=== PATIENT | male | born 1960 | race Caucasian/White ===

== ENCOUNTER 2016-09-27 05:39 | Outpatient (CLI) | payer BC ==
[~2016-09-27] VITALS: Ht 172.7 cm; Wt 72.6 kg
[2016-09-27] MEDS ORDERED: ASPI-586 PO (10:03)
== END 2016-09-27 10:07 ==
LOC: PREOP 05:39
PROVIDERS: ATTEND Surgery Pediatric Surgery
DX: Z01.818 Encounter for other preprocedural examination (principal); Z12.11 Encounter for screening for malignant neoplasm of colon

== ENCOUNTER 2016-09-29 09:37 | Day surgery (SDC) | payer BC ==
[~2016-09-29] VITALS: Ht 172.7 cm; Wt 72.6 kg
[~2016-09-29 09:37] MED LIST: ASPI-586 PO
--- OUTSIDE RECORDS SUMMARY | 2016-09-29 09:39 | XMS REPORT | Continuity of Care Document ---
Author Author [facility] Organization [facility] Address Unknown Phone Unavailable Care Team Providers Care Clinical Physician Assistant Name Role Phone CHETNA HOLLIS MD PCP Insurance Providers Payer Name Policy Number Subscriber Name Relationship [facility] [id number] Florentino Hernandez 19 Self / Same As Patient Advance Directives Directive Response Recorded Date/Time Advance Directives No 09/27/16 10:01am Health Care Power of Medical Asst No 09/27/16 10:01am Resuscitation Status Full Code 09/27/16 10:01am Problems No problem information available. Medications Current Home Medications Medication Dose Units Route Directions Days/Qty Instructions Start Date Aspirin 81 Mg 81 Mg Oral Daily 09/27/16 Social History Social History Problem Response Recorded Date/Time Alcohol Use Regular Use 09/27/2016 10:01am Recreational Drug Use No 09/27/2016 10:01am Recent Foreign Travel No 09/27/2016 10:00am Recent Infectious Disease Exposure No 09/27/2016 10:00am Sexually Transmitted Disease No 09/27/2016 10:01am HIV/AIDS No 09/27/2016 10:01am Smoking Status Never a Smoker 09/27/2016 10:01am Recent Hopitalizations No 09/27/2016 10:01am Sexually Transmitted Disease No 09/27/2016 10:01am Query Response Start Date Stop Date Smoking Status Never a Smoker Hospital Discharge Instructions No hospital discharge instructions. Plan of Care Discharge Date 09/27/16 10:07am Prescriptions See Medication Section Functional Status No functional status results. Allergies, Adverse Reactions, Alerts No known allergies. Immunizations No immunization records. Vital Signs Acute Vital Signs Vital Response Date/Time Height (Feet) 5 feet 09/27/2016 9:59am Height (Inches) 8.00 inches 09/27/2016 9:59am Height (Calculated Centimeters) 172.395154 cm 09/27/2016 9:59am Weight (Pounds) 160 pounds 09/27/2016 9:59am Weight (Ounces) 0.0 oz 09/27/2016 9:59am Weight (Calculated Grams) 44878.78 gm 09/27/2016 9:59am Weight (Calculated Kilograms) 72.810864 kilograms 09/27/2016 9:59am Calculated BMI 24.3 09/27/2016 9:59am Results No known relevant diagnostic tests, laboratory data and/or discharge summary. Procedures No known history of procedures. Encounters Encounter Location Arrival/Admit Date Discharge/Depart Date Attending Provider Departed Clinic [facility] 09/27/16 5:39am 09/27/16 10: 07am ATILIO MEDRANO MD
--- OUTSIDE RECORDS SUMMARY | 2016-09-29 09:40 | XMS REPORT | Continuity of Care Document ---
Author Author [facility] Organization [facility] Address Unknown Phone Unavailable Care Team Providers Care Ski Topper Name Role Phone CHETNA HOLLIS MD PCP Insurance Providers Payer Name Policy Number Subscriber Name Relationship [facility] [id number] Florentino Hernandez 19 Self / Same As Patient Advance Directives Directive Response Recorded Date/Time Advance Directives No 09/27/16 10:01am Health Care Power of Animal Technician No 09/27/16 10:01am Resuscitation Status Full Code [...] 8.00 inches 09/27/2016 9:59am Height (Calculated Centimeters) 172.472197 cm 09/27/2016 9:59am Weight (Pounds) 160 pounds 09/27/2016 9:59am Weight (Ounces) 0.0 oz 09/27/2016 9:59am Weight (Calculated Grams) 74543.78 gm 09/27/2016 9:59am Weight (Calculated Kilograms) 72.286806 kilograms 09/27/2016 9:59am Calculated BMI 24.3 09/27/2016 9:59am Results No known relevant diagnostic tests, laboratory data and/or discharge summary. Procedures No known history of procedures. Encounters Encounter Location Arrival/Admit Date Discharge/Depart Date Attending Provider Departed Clinic [facility] 09/27/16 5:39am 09/27/16 10: 07am ATILIO MEDRANO MD
[2016-09-29] MEDS ORDERED: FLUMAZENIL (ROMAZICON) 0.1 MG/ML 5 ML VIAL INJ PRN (09:45)
[2016-09-29] MEDS ORDERED: LIDOCAINE JELLY 2% (XYLOCAINE) 5 ML TUBE MM PRN (09:45)
[2016-09-29] MEDS ORDERED: NALOXONE 0.4 MG/ML 1 ML (NARCAN) VIAL IVP PRN (09:45)
[2016-09-29 09:58] VITALS: BP 145/91
[2016-09-29] MEDS ORDERED: NS IV 500 ML 500 ML IV PRN (10:00)
[2016-09-29] MEDS ORDERED: LIDOCAINE JELLY 2% (XYLOCAINE) 5 ML TUBE ONE (10:09)
[2016-09-29] MEDS ORDERED: fentaNYL INJECTION 100 MCG/2 ML AMP ONE ×2 (10:09)
[2016-09-29] MEDS ORDERED: MIDAZOLAM 2 MG/2 ML (VERSED) VIAL ONE ×4 (10:09→10:10)
--- NOTE | 2016-09-29 10:13 | Conscious Sedation/ASA ---
Conscious Sedation Pre-Proced Time Reviewed: 10:00 ASA Class: 2 Airway Mallampati Classification: ([place] appropriate class) I. II. III, IV Lungs Heart ASA score ASA 1: a normal healthy patient ASA 2: a patient with a mild systemic disease (mid diabetes, controlled hypertension, obesity ASA 3: a patient with a severe systemic disease that limits activity (angina , COPD, prior Myocardial infarction) ASA 4: a patient with an incapacitating disease that is a constant threat to life (CHF, renal failure) ASA 5: a moribund patient not expected to survive 24 hrs. (ruptured aneurysm) ASA 6: a declared brain patient whose organs are being harvested. For emergent operations, add the letter E after the classification Grade 2 Sedation Plan: Analgesia, Amnesia, Plan communicated to team members, Discussed options with patient/fam, Discussed risks with patient/fam Note The patient is an appropriate candidate to undergo the planned procedure, sedation, and anesthesia. The patient immediately re-assessed prior to indication. ATILIO MEDRANO MD Sep 29, 2016 10:13 am
--- NOTE | 2016-09-29 10:13 | Progress Note-Pre Operative ---
Pre-Operative Progress Note H&P Reviewed The H&P was reviewed, patient examined and no changes noted. Date H&P Reviewed: Sep 29, 2016 Time H&P Reviewed: 10:00 Pre-Operative Diagnosis: screening colonoscopy ATILIO MEDRANO MD Sep 29, 2016 10:13 am
[2016-09-29] MEDS ORDERED: ACETAMINOPHEN 325 MG TABLET/CAPLET (TYLENOL) PO PRN (10:15)
[2016-09-29] MEDS ORDERED: morphine INJ 10 MG/ML 1ML (SYR OR VIAL) IV PRN (10:15)
[2016-09-29] MEDS ORDERED: HYDROcodone/APAP 5 MG/325 MG (LORTAB) TAB PO PRN (10:15)
[2016-09-29] MEDS ORDERED: ONDANSETRON 4 MG/2 ML (SDV) Z0FRAN IV PRN (10:15)
[2016-09-29] MEDS: fentaNYL INJECTION 100 MCG/2 ML AMP IVP PRN ×4 (10:27→10:44)
[2016-09-29] MEDS: MIDAZOLAM 2 MG/2 ML (VERSED) VIAL IVP PRN ×4 (10:28→10:40)
--- NOTE | 2016-09-29 10:53 | Progress Note-Post Operative ---
Post-Operative Progess Note Pre-Operative Diagnosis screening colonoscopy Post-Operative Diagnosis chronic stage 1 ext and int hemorrhoids, mild sigmoid diverticulosis. Post-Op Procedure Note Date of Procedure: Sep 29, 2016 Name of Procedure: Colonoscopy Anesthesia Type CS Estimated blood loss (mL): ATILIO Lyman MD Sep 29, 2016 10:53 am
--- NOTE | 2016-09-29 10:55 | Discharge Inst-Surgical ---
D/C Lap Instructions-MARCELA Follow Up 10 years Activity as tolerated High Fiber Diet 25g or more per day Avoid Alcohol, Caffeine, Spicy [place] and Acid foods. Drink 64 fluid oz or more of fluids per day. Symptoms to Report: Fever over 101 degree F, Nausea/Vomiting If any problems/questions: Contact your physician or go to Emergency Room ATILIO MEDRANO MD Sep 29, 2016 10:55 am
[2016-09-29 11:15] VITALS: BP 118/71
[2016-09-29 12:00] VITALS: BP 119/82
[2016-09-29 12:06] VITALS: BP 119/82
--- NOTE | 2016-09-30 11:52 | OPERATIVE REPORT ---
PROCEDURE PHYSICIAN: ATILIO HERNANDEZ DATE OF PROCEDURE: 09/29/2016 ATTENDING PRIMARY CARE PHYSICIAN: Dr. Self. PREOPERATIVE DIAGNOSIS: Screening colonoscopy. POSTOPERATIVE DIAGNOSES: 1. Mild chronic stage I external and internal hemorrhoids. 2. Mild sigmoid diverticulosis. PROCEDURE: Colonoscopy. SURGEON: Dr. Hernandez. ANESTHESIA: Conscious sedation. ESTIMATED BLOOD LOSS: Minimal. FINDINGS: 1. Chronic stage I external and internal hemorrhoids, not actively edematous or inflamed and no bleeding. The prostate gland was palpable and appeared normal. There was a mild sigmoid diverticulosis. 2. The remainder of the colon was normal. There were no polyps or any neoplasms identified. DISPOSITION: The patient tolerated the procedure well. Mr. Florentino Alaniz is a 56-year-old male in need of a screening colonoscopy. He has not had a colonoscopy up to this point in his life. He reports for the most part he is doing well and does not report any major issues with diarrhea or constipation, as well as no red blood per rectum or any dark tarry stools. He also does not report any family history of colon cancer. PROCEDURE: The patient was brought to the endoscopy suite, laid in the left lateral decubitus position. After adequate IV pain and sedative medications and conscious sedation anesthesia, a digital rectal examination was performed. Mild stage I chronic external and internal hemorrhoids were identified which were not actively edematous or inflamed and no bleeding. Normal sphincter tone was felt and there were no palpable masses. The prostate gland was palpable and appeared normal. Endoscope was then intubated into the anus, rectum gently insufflated. The endoscope was then advanced through the valves of Frank or the rectum with no polyps or any neoplasms identified. We then proceeded through the sigmoid colon where a mild sigmoid diverticulosis identified. The endoscope was then advanced through the remainder of the descending, transverse, and ascending colon of the cecum. These segments were normal. There were no polyps or any neoplasms identified throughout the colon or rectum. The endoscope was slowly withdrawn while taking a second look and suctioning residual air no additional findings. The patient tolerated the procedure well. We will recommend continued medical management with a high fiber diet with at least 30 grams of fiber per day as well as at least 64 fluid ounces of water daily to promote soft stools on a daily basis. No polyps are identified and he does not need another colonoscopy for another 10 years. However, sooner if any problems arise. Job ID: [id number] Dictated Date: 09/29/2016 10:50:06 Full Stack Python Developer Date: 09/30/2016 11:45:25 / jamie
== END 2016-09-29 12:07 | disposition home or self-care (01) ==
LOC: ENDO 09:37
PROVIDERS: ATTEND Surgery Pediatric Surgery
DX: Z12.11 Encounter for screening for malignant neoplasm of colon (principal); K57.90 Diverticulosis of intestine, part unspecified, without perforation or abscess without bleeding; K64.0 First degree hemorrhoids